=== PATIENT | female | born 1975 | race Caucasian/White ===

== ENCOUNTER → 2019-10-14 | Outpatient (CLI) | payer OTHER ==
[~2019-10-14] MED LIST: HYDROmorphone 2 MG/ML VIAL IV PRN; IV RINGERS,LACTATED 1000ML 1,000 ML IV SCH; MORPHINE SULFATE 2 MG/ML VIAL. IV PRN; ONDANSETRON PF 4 MG/2 ML VIAL. IV PRN; PROCHLORPERAZINE 10 MG/2 ML VIAL. IV PRN; fentaNYL PF VIAL 100 MCG/2 ML VIAL IV PRN
--- NOTE | 2019-10-21 13:07 | PATHOLOGY ---
[facility] Accession Number: [id number] . 01 Material submitted: . PART A: colon - RIGHT COLON BX. Modifiers: right PART B: colon - TRANSVERSE COLON BX. Modifiers: transverse PART C: colon - LEFT COLON BX. Modifiers: left . 01 Clinical history: . Hx of colitis . 02 Diagnosis: A. Colonic mucosa, right colon biopsies: - Consistent with quiescent colitis - no evidence of active chronic destructive colitis or dysplasia. . B. Colonic mucosa, transverse colon biopsies: - Consistent with quiescent colitis - no evidence of active chronic destructive colitis or dysplasia. . C. Colonic mucosa, left colon biopsies: - Consistent with quiescent colitis - no evidence of active chronic destructive colitis or dysplasia. . (EDISM:mary beth; 10/21/2019) [facility] 10/21/2019 1014 Local . 02 Comment: Sections of the right colon, transverse colon, and left colon biopsies appear similar and reveal segments of colonic mucosa which largely appear normal and show minimal architectural abnormalities. There is no evidence of an active chronic destructive colitis or dysplasia. (EDISM:mary beth; 10/21/2019) . 02 Electronically signed: . Mark Ogden MD, Pathologist NPI- [id number] . 01 Gross description: . A. The specimen is received in formalin labeled "[place], Kasie, right colon BX" and consists of multiple fragments of pink-esquivel tissue measuring 1.6 x 0.5 x 0.2 cm in aggregate which is entirely submitted in A1. . B. The specimen is received in formalin labeled "[place], Kasie, transverse colon BX" and consists of multiple fragments of esquivel tissue measuring 1.2 x 0.7 x 0.2 cm in aggregate which is entirely submitted in B1. . C. The specimen is received in formalin labeled "Jen, Kasie, left colon BX" and consists of multiple fragments of esquivel tissue measuring 1.4 x 0.3 x 0.2 cm in aggregate which are entirely submitted in C1. (CORINNA; 10/18/2019) JFQ/JFQ 10/18/2019 1453 Local . 02 Pathologist provided ICD-10: Z87.19 . 02 CPT . 075601, 851470, 741234 Specimen Comment: A courtesy copy of this report has been sent to [phone], [phone] Specimen Comment: [id number] Specimen Comment: Report sent to / DR RODRIGUEZ Specimen Comment: A duplicate report has been generated due to demographic updates. Performed at: 01 [facility] [address], [place] [id number] MD Guille Kimble MD Phone: [phone] Performed at: 02 [facility] [address] [place], [place] [id number] MD Mark Ogden MD Phone: [phone]
== END | disposition home or self-care (01) ==
LOC: SURGPAT 13:33 → SURG 13:33 → EDSTATUS 10-18 08:30
PROVIDERS: ATTEND Internal Medicine Gastroenterology
DX: Z01.812 Encounter for preprocedural laboratory examination (principal); Z11.59 Encounter for screening for other viral diseases; R13.10 Dysphagia, unspecified; R19.7 Diarrhea, unspecified
CPT/HCPCS: 36415; 87635; 88305

== ENCOUNTER → 2019-10-18 | Day surgery (SDC) | payer OTHER ==
[~2019-10-18] MED LIST changes: -HYDROmorphone 2 MG/ML VIAL IV PRN; +LIDOCAINE 2% PF 5 ML VIAL. ONE; -MORPHINE SULFATE 2 MG/ML VIAL. IV PRN; -ONDANSETRON PF 4 MG/2 ML VIAL. IV PRN; -PROCHLORPERAZINE 10 MG/2 ML VIAL. IV PRN; +PROPOFOL 10 MG/ML (20ML) VIAL. IV ONE; -fentaNYL PF VIAL 100 MCG/2 ML VIAL IV PRN
[2019-10-18 10:30] VITALS: BP 116/70
== END | disposition home or self-care (01) ==
LOC: ENDOS 07:04
PROVIDERS: ATTEND Internal Medicine Gastroenterology
DX: R10.13 Epigastric pain (principal); K51.00 Ulcerative (chronic) pancolitis without complications; K22.2 Esophageal obstruction; K21.9 Gastro-esophageal reflux disease without esophagitis; K64.0 First degree hemorrhoids; F41.9 Anxiety disorder, unspecified; F32.9 Major depressive disorder, single episode, unspecified; M79.7 Fibromyalgia; F15.90 Other stimulant use, unspecified, uncomplicated; Z87.39 Personal history of other diseases of the musculoskeletal system and connective tissue; Z79.82 Long term (current) use of aspirin
CPT/HCPCS: 43235; 43450; 45380; J2704; J3490

== ENCOUNTER → 2019-11-15 | Outpatient (CLI) | payer OTHER ==
[2019-10-18 10:30] VITALS: BP 116/70
[~2019-11-15] MED LIST changes: +AMIT75TA PO; +ARIP10TA9 PO; +ASPI-612 PO; +CETI10TA16 PO; +CLON0.1T PO; +DULO60CA6 PO; +HYDR25TA PO; -IV RINGERS,LACTATED 1000ML 1,000 ML IV SCH; -LIDOCAINE 2% PF 5 ML VIAL. ONE; +MAGN400T5 PO; +ONDA4TAB12 PO; -PROPOFOL 10 MG/ML (20ML) VIAL. IV ONE; +UBID100C26 PO; +vitamin D3
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
== END ==
LOC: PNCL 09:56
PROVIDERS: ATTEND Anesthesiology
DX: M51.36 Other intervertebral disc degeneration, lumbar region (principal); M50.30 Other cervical disc degeneration, unspecified cervical region; E66.9 Obesity, unspecified; M19.90 Unspecified osteoarthritis, unspecified site
CPT/HCPCS: G0463

== ENCOUNTER → 2019-12-05 | Outpatient (CLI) | payer OTHER ==
[2019-10-18 10:30] VITALS: BP 116/70
--- NOTE | 2019-12-05 15:58 | RAD ---
CERVICAL SPINE WO CONTRAST History:Reason: PAIN AND RADICULOPATHY IN ALL EXTREMITIES / Spl. Instructions: / History: Technique: Multiplanar, multi sequential noncontrast MR imaging was performed of the cervical spine. Comparison: None Findings: Normal vertebral body height and alignment. No fracture. Decreased T1 marrow signal, likely related to hematopoietic marrow. No pathologic signal abnormality within the cervical spinal cord. C2-C3: No canal or neuroforaminal narrowing. C3-C4: Minimal disc bulge. No canal or neuroforaminal narrowing. C4-C5: Minimal disc bulge. No canal or neuroforaminal narrowing. C5-C6: Minimal disc bulge. No canal or neuroforaminal narrowing. C6-C7: Minimal disc bulge. No canal or neuroforaminal narrowing. C7-T1: No canal or neuroforaminal narrowing. Partially empty sella. Impression: 1. Mild cervical spondylosis. No significant canal or neuroforaminal narrowing. 2. Partially empty sella, can be incidental although can be seen with intracranial hypertension. Electronically signed by: Nishant Molina DO (12/05/2019 3:55 PM) [id number]
--- NOTE | 2019-12-05 16:02 | RAD ---
LUMBAR SPINE WO CONTRAST History: Reason: PAIN AND RADICULOPATHY IN ALL EXTREMITIES / Spl. Instructions: / History: Technique: Multiplanar, multi sequential MR imaging was performed of the lumbar spine. Comparison: None Findings: Normal vertebral body height and alignment. No fracture. Decreased T1 marrow signal, likely due to hematopoietic marrow. T12 vertebral body hemangioma. Conus terminates at the normal location. No evidence of nerve root clumping. L1-L2: No canal or neuroforaminal narrowing. L2-L3: No canal or neuroforaminal narrowing. L3-L4: No canal or neuroforaminal narrowing. L4-L5: No canal or neuroforaminal narrowing. Mild facet arthropathy. L5-S1: No canal or neuroforaminal narrowing. Mild facet arthropathy. Impression: 1. Mild lower lumbar facet arthropathy. No significant canal or neuroforaminal narrowing. Electronically signed by: Nishant Molina DO (12/05/2019 3:59 PM) [id number]
== END | disposition home or self-care (01) ==
LOC: MRI 13:50
PROVIDERS: ATTEND Anesthesiology
DX: M47.896 Other spondylosis, lumbar region (principal); M54.16 Radiculopathy, lumbar region; M47.892 Other spondylosis, cervical region; I10 Essential (primary) hypertension; G93.2 Benign intracranial hypertension
CPT/HCPCS: 72141; 72148

== ENCOUNTER → 2019-12-10 | Outpatient (CLI) | payer OTHER ==
[2019-10-18 10:30] VITALS: BP 116/70
[~2019-12-10] MED LIST changes: +IOHEXOL 180 MG/ML 10 ML VIAL. ONE; +methylPREDNISolone ACETATE 40 MG/ML VIAL. ONE; +methylPREDNISolone ACETATE 80 MG/ML VIAL. ONE
--- NOTE | 2019-12-10 13:10 | PAIN ---
DATE OF SERVICE: 12/10/2019 PROGRESS NOTE FOR PAIN CLINIC: DIAGNOSES: 1. Lumbar radiculopathy with lumbar degenerative disk disease. 2. Cervical radiculopathy with cervical degenerative disk disease. HISTORY OF PRESENT ILLNESS: The patient is a 44-year-old female who returns for followup status post initial evaluation and preauthorization for lumbar epidural steroid injection. We also had MRI scans of both the lumbar and cervical spines. We reviewed this with the patient today as well showing some spondylosis in both regions. The patient reports still significant pain in the low back as well as in the base of neck and shoulders, mainly in the low back, right greater than left lower extremity with pain radiating to posterior gluteus, posterior thigh, lateral thigh, anterior thigh, medial thigh and both the knees. The patient reports it is a 10 on a scale of 10 at its worst in the past week, 7 on average, 6 at its least and is a 7 today. The patient reports it is tingling, burning, cramping, aching, and sharp at times, constant in the back, sometimes unbearable with walking and standing. 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 This has caused some pain to be increased as well, but she is getting through the work and enjoys it this time. The patient reports no new motor or sensory deficits, no new bowel or bladder incontinence. Reports it is generally does not awaken her from sleep at night, better with sitting or lying down, again worse with walking or standing. PHYSICAL EXAMINATION: VITAL SIGNS: The patient's blood pressure 124/69, pulse 83, respirations 18, temperature 98.2 degrees Fahrenheit, height is 5 feet 3 inches, weight is 314 pounds. GENERAL: The patient is awake, alert, oriented, appropriate, very pleasant demeanor. HEENT: Shows normocephalic, atraumatic. Extraocular movements are intact and symmetrical. Oral cavity shows mucous membranes moist and pink. Dentition is intact. NECK: Shows anterior throat supple without palpable lymphadenopathy noted. Swallow reflex symmetrical. CHEST: Shows normal on inspection. Breath sounds clear bilaterally. HEART: Shows S1, S2 clear. No murmurs auscultated. ABDOMEN: Soft, nontender, nondistended. No palpable organomegaly is noted. No rebound or guarding demonstrated. BACK: Shows spine grossly in the midline. Normal appearing thoracic kyphosis and minor flattening of lumbar lordotic curvature. Lumbar paraspinous muscle shows symmetrical on inspection, with palpation shows some moderate tenderness diffusely throughout the upper, middle and lower distribution of paraspinous muscles bilaterally without radiation. The patient has good rotational motion of lumbar spine, both laterally as well as extension and flexion without significant pain reported. EXTREMITIES: Lower extremities show deep tendon reflexes at 1+ in the patellar and tendo calcaneus tendons. Motor exam is approximately 4 on a scale of 5 on the right with dorsiflexion and extension, 5/5 on the left. Peripheral pulses are 1+. No peripheral edema bilaterally. Options were discussed with the patient. The patient's old chart was reviewed as her current medication regimen updated. Current review of systems updated today as well. We will proceed with a lumbar epidural steroid injection today with fluoroscopic guidance. Risks were discussed including but not limited to bleeding, infection, possibility of epidural hematoma, subsequent neurological compromise, dural puncture, headaches, spinal cord and/or nerve damage, side effects of steroid medication and poor results regarding pain control. The patient understands and wished to proceed. The patient will return to clinic in approximately 2 weeks for followup. She was counseled on return appointment, activity level and side effects to be aware of. DIAGNOSES: Lumbar radiculopathy with lumbar degenerative disk disease. PROCEDURE: Lumbar epidural steroid injection, translaminar approach at L4-L5 level using C-arm fluoroscopic guidance under sterile prep and drape using local anesthetic. MEDICATION INJECTED: A total of 120 mg Depo-Medrol plus 10 mL of preservative-free normal saline and 2 mL of contrast. CONDITION AT DISCHARGE: Stable. The patient tolerated the procedure well, had no complications. GRETCHEN BARLOW MD DR: SAMUEL/lm JOB#: [id number] / [id number]
== END ==
LOC: PNCL 11:44
PROVIDERS: ATTEND Anesthesiology
DX: M51.16 Intervertebral disc disorders with radiculopathy, lumbar region (principal); M50.10 Cervical disc disorder with radiculopathy, unspecified cervical region
CPT/HCPCS: 62323; J1030; J1040; Q9965

== ENCOUNTER → 2019-12-11 | Outpatient (CLI) | payer OTHER ==
[2019-10-18 10:30] VITALS: BP 116/70
[~2019-12-11] MED LIST changes: -IOHEXOL 180 MG/ML 10 ML VIAL. ONE; -methylPREDNISolone ACETATE 40 MG/ML VIAL. ONE; -methylPREDNISolone ACETATE 80 MG/ML VIAL. ONE
--- NOTE | 2019-12-11 12:54 | KCIC ---
STUDY: MRI of the right knee without contrast INDICATION: Right knee pain. Swelling. COMPARISON: Right knee radiograph 11/25/2019 TECHNIQUE: Multiplanar MR imaging of the right knee performed without the use of intravenous or intra-articular contrast. FINDINGS: Degraded study on account of patient body habitus requiring the use of a flex coil. Menisci: Probable small free edge tear of the mid medial meniscal body which is slightly blunted, image 15 series 8. Intact lateral meniscus. Cruciate ligaments: Intact. Collateral ligaments: Intact. Tendons: Intact extensor mechanism. The additional tendons at the knee are unremarkable. Cartilage: Patellofemoral: High-grade chondrosis involving the lateral patellar facet more so than the medial facet as well as involving the median ridge. The lower half of the patella is predominantly involved. High-grade/full-thickness chondrosis at the lower half of the lateral trochlea with subchondral marrow edema and eburnation of the subchondral bone plate (image 18 series 6). Less pronounced chondrosis at the groove and medial trochlea. Lateral compartment: No high-grade chondral defect. Medial compartment: No high-grade chondral defect. Bones: Heterogeneous marrow signal but confined to the diametaphyseal region favored physiologic/active red marrow given patient age and body habitus. No acute fracture. Within normal limits TT-TG distance of 1.6 cm. Mild lateral patellar subluxation. Miscellaneous: Small knee joint effusion. Scattered subcutaneous edema greatest along the patellar tendon to the tibial tuberosity. IMPRESSION: 1. Suspected small free edge tear of the mid medial meniscal body given slight free edge blunting of the meniscus at this location (image 15 series 8). Otherwise the menisci are intact. Unremarkable cruciate and collateral ligaments. 2. There is of high-grade as well as full-thickness chondrosis mainly at the lower half of the patella as well as at the lower aspect of the lateral trochlea. Correspondingly there is localized subchondral marrow edema at the lateral trochlea. 3. Slight lateral patellar subluxation. TT-TG distance is within normal limits. 4. Trace knee joint effusion. Electronically signed by: JOSE E WEN MD (12/11/2019 12:51 PM) [id number]
== END | disposition home or self-care (01) ==
LOC: KCIC MRI 08:16
PROVIDERS: ATTEND Family Medicine
DX: S83.011A Lateral subluxation of right patella, initial encounter (principal); M25.461 Effusion, right knee; X58.XXXA Exposure to other specified factors, initial encounter; Y93.89 Activity, other specified; Y92.89 Other specified places as the place of occurrence of the external cause; Y99.8 Other external cause status
CPT/HCPCS: 73721

== ENCOUNTER 2019-12-20 20:13 | Emergency (ER) | payer OTHER ==
[~2019-12-20] VITALS: Ht 160 cm; Wt 136.4 kg
[2019-12-20 20:40] VITALS: BP 172/69
[2019-12-20] MEDS ORDERED: TRAM-48 PO (21:38)
--- NOTE | 2019-12-20 21:46 | PHYS DOC ---
Past Medical History Past Medical History: Anxiety, Other Additional Past Medical Histor: "GI ISSUES", TORN MENISCUS, N/V, HERNIA Past Surgical History: Cholecystectomy, Other Additional Past Surgical Histo: R KNEE SX X2, HERNIA REPAIR Smoking Status: Never Smoker Alcohol Use: None General Adult EDM: Chief Complaint: PAIN CONTROL HPI: HPI: Patient is a 44 year old female past medical history of chronic right knee pain presents with a chief complaint of increasing right knee pain. Patient states 2 weeks ago she had an MRI and was advised that she had multiple issues with her right knee including a ligamentous tear. Patient states she is been taking aspirin for pain with no relief. Patient tells me over the last 4 days she has not been feeling well she states she has vomited 4 times despite using her Zofran. Patient states she is also had a runny nose associated with hot flashes and chills. Review of Systems: Review of Systems: Constitutional: Positive chills Eyes: Denies change in visual acuity. [] HENT: Does not have nasal congestion Respiratory: Denies cough or shortness of breath. [] Cardiovascular: Denies chest pain or edema. [] GI: Denies abdominal pain, nausea, vomiting, bloody stools or diarrhea. [] : Denies dysuria. [] Musculoskeletal: Positive knee pain Integument: Denies rash. [] Neurologic: Denies headache, focal weakness or sensory changes. [] Endocrine: Denies polyuria or polydipsia. [] Lymphatic: Denies swollen glands. [] Psychiatric: Denies depression or anxiety. [] Heart Score: Risk Factors: Risk Factors: DM, Current or recent (<one month) smoker, HTN, HLP, family history of CAD, obesity. Risk Scores: Score 0 - 3: 2.5% MACE over next 6 weeks - Discharge Home Score 4 - 6: 20.3% MACE over next 6 weeks - Admit for Clinical Observation Score 7 - 10: 72.7% MACE over next 6 weeks - Early Invasive Strategies Allergies: Allergies: Allergies Coded Allergies Type Severity Reaction Last Updated Verified No Known Drug Allergies 10/18/19 No Physical Exam: PE: Constitutional: Well developed, well nourished, no acute distress, non-toxic appearance. [] HENT: Normocephalic, atraumatic, bilateral external ears normal, oropharynx moist, no oral exudates, nose normal. [] Eyes: EOMI, conjunctiva normal, no discharge. [] Neck: Normal range of motion, no tenderness, supple, no stridor. [] Cardiovascular:Heart rate regular rhythm, no murmur [] Lungs & Thorax: Bilateral breath sounds clear to auscultation [] Abdomen: Bowel sounds normal, soft, no tenderness, no masses, no pulsatile masses. [] Skin: Warm, dry, no erythema, no rash. [] Back: No tenderness, no CVA tenderness. [] Extremities: No tenderness, no cyanosis, no clubbing, ROM intact, no edema. [right knee tender to palpation, not warm to touch] Neurologic: Alert and oriented X 3, normal motor function, normal sensory function, no focal deficits noted. [] Psychologic: Affect normal, judgement normal, mood normal. [] Current Patient Data: Vital Signs: Vital Signs Date Time Temp Pulse Resp B/P (MAP) Pulse Ox O2 Delivery O2 Flow Rate FiO2 12/20/19 20:40 98.0 74 18 172/69 (103) 97 98.0 EKG: EKG: [] Radiology/Procedures: Radiology/Procedures: [] Course & Med Decision Making: Course & Med Decision Making Pertinent Labs and Imaging studies reviewed. (See chart for details) [] Dragon Disclaimer: Dragruth Disclaimer: This electronic medical record was generated, in whole or in part, using a voice recognition dictation system. Departure Departure Impression: Primary Impression: Knee pain, chronic Additional Impression: Upper respiratory infection Disposition: HOME, SELF-CARE Condition: STABLE Patient Instructions: Knee Pain, Upper Respiratory Infection, Adult Scripts Tramadol Hcl (ULTRAM) 50 Mg Tablet 1 TAB PO PRN Q6HRS PRN for pain MDD 4 Tablet(s) for 7 Days, #20 TAB 0 Refills Prov: ANIBAL VINECNT DO 12/20/19 Justicifation of Admission Dx: Justifications for Admission: Justification of Admission Dx: N/A ANIBAL VINCENT DO Dec 20, 2019 21:46
== END 2019-12-20 21:43 | disposition home or self-care (01) ==
LOC: ER 20:13
DX: G89.29 Other chronic pain (principal); M25.561 Pain in right knee; J06.9 Acute upper respiratory infection, unspecified
CPT/HCPCS: 99283